=== PATIENT | female | born 1980 | race Hispanic/Latino ===

== ENCOUNTER 2022-10-04 12:17 | Emergency (ER) | payer OTHER, SELFPAY ==
--- OUTSIDE RECORDS SUMMARY | 2022-10-04 12:24 | XMS REPORT | Continuity of Care Document ---
:1980 Author Organization [facility] t Address [address] [place] [address] Care Team Providers Name Role Phone Pcp, Patient Does Not Have A Primary Care Physician [phone] Doctor Unassigned, [place] Attending Clinician Unavailable DEONDRE MCCARTY Attending Clinician Unavailable DANIELA WILLETT Attending Clinician Unavailable DANIELA WILLETT Attending Clinician Unavailable Problems Condition Condition Condition Status Onset Resolution Last Treating Co mments Source Name Details Category Date Date Treatment Clinician Date Pain Pain Disease Active Univers pelvic pelvic 8-03 ity of 00:00: [address] Dysuria Dysuria Disease Active Univers 8-03 ity of 00:00: [address] Nausea Nausea Disease Active Univers 8-03 ity of 00:00: [address] History of History of Disease Active U nivers UTI UTI 10-12 ity of 00:00: [address] Allergies, Adverse Reactions, Alerts Allergy Allergy Status Severity Reaction(s) Onset Inactive Treating Comm ents Source Name Type Date Date Clinician NO KNOWN Drug Active Univers ALLERGIE Class ity of S [facility] Social History Social Habit Start Date Stop Date Quantity Comments Source History of Passive smoker University of tobacco use [facility] [place] History SDOH University o f Alcohol Frequency [facility] edical [place] History SDOH University o f Alcohol Std [facility] Drinks Branch History SDOH University o f Alcohol Binge [place] [facility] [place] Tobacco use and 2021-10-12 2021-10-12 Smokeless tobacco Un iversity of exposure 00:00:00 00:00:00 non-user [facility] Alcohol intake 2021-10-12 2021-10-12 Current drinker of Un iversity of 00:00:00 00:00:00 alcohol (finding) [facility] Alcohol Comment 2021-10-12 2021-10-12 occasionally Univers ity of 00:00:00 00:00:00 [facility] Sex Ass[birth year] At [birth year] Universit y of 00:00:00 00:00:00 [facility] Smoking Status Start Date Stop Date Source Never smoked tobacco [facility] Medications Ordered Filled Start Stop Current Ordering Indication Dosage Frequency Signature Comments Components Source Medication Medication Date Date Medication? Clinician (SIG) Name Name ciprofloxac Yes TAKE 1 Univ ers in HCl 500 7-28 TABLET BY ity of mg tablet 00:00: MOUTH TWICE A Medical DAY FOR 10 Branch DAYS ondansetron Yes PLEASE SEE Univers 8 mg 7-28 ATTACHED ity of disintegrat 00:00: FOR [place] ing tablet 00 DETAILED Medic al DIRECTIONS Branch proMETHazin Yes PLEASE SEE Univers e 25 mg 7-28 ATTACHED ity of tablet 00:00: FOR DETAILED Medical DIRECTIONS Branch ciprofloxac Yes TAKE 1 Univ ers in HCl 500 7-28 TABLET BY ity of mg tablet 00:00: MOUTH TWICE A Medical DAY FOR 10 Branch DAYS ondansetron Yes PLEASE SEE Univers 8 mg 7-28 ATTACHED ity of disintegrat 00:00: FOR [place] ing tablet 00 DETAILED Medic al DIRECTIONS Branch proMETHazin Yes PLEASE SEE Univers e 25 mg 7-28 ATTACHED ity of tablet 00:00: FOR DETAILED Medical DIRECTIONS Branch ciprofloxac Yes TAKE 1 Univ ers in HCl 500 7-28 TABLET BY ity of mg tablet 00:00: MOUTH TWICE A Medical DAY FOR 10 Branch DAYS ondansetron Yes PLEASE SEE Univers 8 mg 7-28 ATTACHED ity of disintegrat 00:00: FOR [place] ing tablet 00 DETAILED Medic al DIRECTIONS Branch proMETHazin Yes PLEASE SEE Univers e 25 mg 7-28 ATTACHED ity of tablet 00:00: FOR DETAILED Medical DIRECTIONS Branch ciprofloxac Yes TAKE 1 Univ ers in HCl 500 7-28 TABLET BY ity of mg tablet 00:00: MOUTH 00 TWICE A Medical DAY FOR 10 Branch DAYS ondansetron Yes PLEASE SEE Univers 8 mg 7-28 ATTACHED ity of disintegrat 00:00: FOR [place] ing tablet 00 DETAILED Medic al DIRECTIONS Branch proMETHazin Yes PLEASE SEE Univers e 25 mg 7-28 ATTACHED ity of tablet 00:00: FOR 00 DETAILED Medical [facility] Branch Vital Signs Vital Name Observation Time Observation Value Comments Source Systolic blood 2021-10-12 15:49:00 112 mm[Hg] Univer sity of pressure [facility] Diastolic blood 2021-10-12 15:49:00 72 mm[Hg] Unive rsity of [facility] Heart rate 2021-10-12 15:49:00 82 /min [facility] Body temperature 2021-10-12 15:49:00 [facility] Respiratory rate 2021-10-12 15:49:00 16 /min [facility] Body height 2021-10-12 15:49:00 139.7 cm [facility] Body weight 2021-10-12 15:49:00 55.792 kg [facility] BMI 2021-10-12 15:49:00 28.59 kg/m2 [facility] Procedures Procedure Date / Time Performed Performing Clinician Patricia e EXTERNAL PROVIDER 2021-12-05 05:01:00 Doctor Unassigned, No Univ ersity [facility] RECORDS Name [facility] EXTERNAL PROVIDER 2021-10-25 05:01:00 [facility]igned, [facility] URINE CULTURE 2021-10-12 20:07:00 Daniela Willett [facility] Encounters Start End Encounter Admission Attending Care Care Encounter Source Date/Time Date/Time Type Type Clinicians Facility Department ID 2021-12-05 2021-12-05 Orders Doctor LAMAR [id number] Univers 00:00:00 00:00:00 Only Unassigned, ZOHAIB [id number] ity of [place] [facility] [id number] Silvino as [id number] [place] [address] Branch 2021-11-04 2021-11-04 Outpatient R BIBIANA [facility] [id number] Univers 09:30:00 09:30:00 DEONDRE flaca [facility] 2021-10-26 2021-10-26 Outpatient R DANIELA WILLETT [facility] B [id number] Univers 10:00:00 10:00:00 TAMIEDANIELAjyothi [facility] 2021-10-25 2021-10-25 Orders Doctor BRIANDA [id number] Univers 00:00:00 00:00:00 Only Unassigned, ZOHAIB [id number] ity of [place] [facility] [id number] Silvino [id number] [address] 2021-10-14 2021-10-14 Telephone Tamie [facility] [id number] Univers 00:00:00 00:00:00 Daniela REILLY [id number] it y [place] [id number] [facility] [id number] [address] 2021-10-12 2021-10-12 Outpatient R JUANCHODANIELA LOPES [facility] B [id number] Univers 10:00:00 11:23:25 TAMIEJOSE ALFREDODIEUDONNE thayer [facility] 2021-10-12 2021-10-12 Office Fabiromarionikkotracy [facility] [id number] Univers 10:00:00 11:23:25 Visit Daniela REILLY [id number] it y of WOMEN'S [id number] [facility] s HEALTH [id number] [address] 2021-10-12 2021-10-12 Outpatient R TAMIEJOSE ALFREDODIEUDONNE [facility] B [id number] Univers 10:00:00 11:23:25 DANIELA WILLETT [facility] 2021-10-12 2021-10-12 Outpatient R TAMIE JOSE ALFREDODIEUDONNE [facility] B [id number] Univers 10:00:00 11:23:25 DANIELA WILLETT [facility] 2021-10-12 2021-10-12 Letter JAEL Willett [id number] Univers 00:00:00 00:00:00 (Out) Daniela REILLY [id number] it y of WOMEN'S [id number] [facility] [id number] [facility] [address] Branch 2021-08-03 2021-08-03 Orders Doctor BRIANDA [id number] Univers 00:00:00 00:00:00 Only Unassigned, ZOHAIB [id number] ity of [place] [facility] [id number] [facility] [id number] [facility] 009 Branch Results This patient has no known results.
[2022-10-04 13:00] LABS: Specific Gravity 1.017 (1.005-1.030)
[2022-10-04 13:01] LABS: Specific Gravity 1.017 (1.005-1.030); Urine Bacteria <20 /HPF (<20); Urine Bilirubin NEGATIVE (Negative); Urine Blood Trace (Negative); Urine Clarity Turbid (Clear); Urine Color Light-Yellow (Yellow); Urine Glucose NEGATIVE (Negative); Urine Protein NEGATIVE (Negative); Urine Urobilinogen Normal (Normal); Urine pH 7.5 (5.0-7.0)
[2022-10-04 13:03] LABS: Urine Mucus Slight /HPF (None Seen)
[2022-10-04] MEDS ORDERED: ONDANSETRON 4 MG/2 ML VIAL ONE (13:29)
[2022-10-04] MEDS ORDERED: NA CHLORIDE 0.9% 1,000 ML ONE (13:29)
[2022-10-04] MEDS ORDERED: FAMOTIDINE 20 MG/2 ML VIAL IV ONE (13:29)
[2022-10-04] MEDS ORDERED: KETOROLAC 30 MG/ML INJ ONE (13:29)
[2022-10-04 13:45] LABS: Absolute Lymphocytes (CBC) 1.6 K/uL (0.7-4.9); Hematocrit 37.4 % (36.0-45.0); Lymphocytes % 28.2 % (15.3-44.8); MCV 94.9 fL (80-100); MPV 8.2 fL (7.6-11.3); RBC Red Blood Cell Count 3.94 M/uL (3.86-4.86)
--- NOTE | 2022-10-04 13:45 | RAD REPORT ---
EXAM DESCRIPTION: CTAbdomen Pelvis W Contrast - 10/04/2022 1:38 pm CLINICAL HISTORY: Abdominal pain. ABD PAIN COMPARISON: No comparisons TECHNIQUE: Biphasic CT imaging of the abdomen and pelvis was performed with 100 ml non-ionic IV cont rast. All CT scans are performed using dose optimization technique as appropriate and may include automated exposure control or mA/KV adjustment according to patient size. FINDINGS: The lung bases are clear. The liver, spleen, pancreas, adrenal glands and right kidney are within normal limits. Defects in the left kidney likely related to previous infection. No bowel obstruction, free air, intra-abdominal free fluid or abscess. The appendix is normal. Small fat containing umbilical hernia. No evidence of significant lymphadenopathy. Trace pelvic free fluid . No suspicious bony findings. IMPRESSION: No acute intra-abdominal or pelvic finding.
[2022-10-04 14:02] LABS: Albumin 3.6 g/dL (3.4-5.0); Bilirubin Total 0.8 mg/dL (0.2-1.0); Potassium 3.8 mEq/L (3.5-5.1); Protein, Total 7.1 g/dL (6.4-8.2)
[2022-10-04] MEDS ORDERED: PROMETHAZINE INJ 25 MG/ML AMP ONE ×2 (14:43→14:48)
[2022-10-04] MEDS ORDERED: FENTANYL CITR 100 MCG/2 ML ONE ×2 (14:44→14:48)
[2022-10-04] MEDS ORDERED: NA CHLORIDE 0.9% 250 ML ONE (14:44)
--- NOTE | 2022-10-04 15:31 | RAD REPORT ---
EXAM DESCRIPTION: US - Transvaginal Study Probe - 10/04/2022 3:21 pm CLINICAL HISTORY: left adnexal tenderness;Abd pain Pelvic pain. COMPARISON: Transvaginal Study Probe dated 10/06/2021 FINDINGS: The uterus is normal in size, shape and echotexture. The uterus measures 9.9 x 6.5 x 5.3 c m. The endometrial stripe measures 13 mm, normal. Both ovaries are normal in size, shape and echotexture. The right ovary measures 3.6 x 3.1 x 2.3 cm. The left ovary measures 2.9 x 1.7 x 1.6 cm.. No ovarian or parovarian lesions. No adnexal masses. Normal Doppler blood flow was demonstrated to both ovaries. Mild free fluid. IMPRESSION: No acute finding demonstrated.
--- NOTE | 2022-10-04 15:37 | EDPHYS ---
Physician Documentation [facility] Name: Chary Milligan Age: 42 yrs Sex: Female : 1980 Arrival Date: 10/04/2022 Time: 12:17 Bed 10 Private MD: ED Physician Falguni Yoo HPI: 10/04 15:58 This 42 yrs old Female presents to ER via Ambulatory with complaints of Pelvic snw Pain, Nausea. 15:58 Onset: The symptoms/episode began/occurred acutely. Associated signs and symptoms: snw Pertinent positives: nausea, Pertinent negatives: chest pain, congestion, constipation, diarrhea, dysuria, fever. It is unknown whether or not the patient has had similar symptoms in the past. 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 - Social history:: Smoking status: Patient denies any tobacco usage or history of. ROS: 15:57 Constitutional: Negative for fever, chills, and weight loss, Eyes: Negative for injury, snw pain, redness, and discharge, ENT: Negative for injury, pain, and discharge, Neck: Negative for injury, pain, and swelling, Cardiovascular: Negative for chest pain, palpitations, and edema, Respiratory: Negative for shortness of breath, cough, wheezing, and pleuritic chest pain, Back: Negative for injury and pain, : Negative for injury, bleeding, discharge, and swelling, MS/Extremity: Negative for injury and deformity, Skin: Negative for injury, rash, and discoloration, Neuro: Negative for headache, weakness, numbness, tingling, and seizure, Psych: Negative for depression, anxiety, suicide ideation, homicidal ideation, and hallucinations. 15:57 Abdomen/GI: Positive for abdominal pain, nausea, abdominal cramps, abdominal distension, of the suprapubic area and left lower quadrant. Exam: 15:55 Constitutional: This is a well developed, well nourished patient who is awake, alert, snw and in no acute distress. Head/Face: Normocephalic, atraumatic. Eyes: Pupils equal round and reactive to light, extra-ocular motions intact. Lids and lashes normal. Conjunctiva and sclera are non-icteric and not injected. Cornea within normal limits. Periorbital areas with no swelling, redness, or edema. ENT: Nares patent. No nasal discharge, no septal abnormalities noted. Tympanic membranes are normal and external auditory canals are clear. Oropharynx with no redness, swelling, or masses, exudates, or evidence of obstruction, uvula midline. Mucous membranes moist. Neck: Trachea midline, no thyromegaly or masses palpated, and no cervical lymphadenopathy. Supple, full range of motion without nuchal rigidity, or vertebral point tenderness. No Meningismus. Chest/axilla: Normal chest wall appearance and motion. Nontender with no deformity. No lesions are appreciated. Cardiovascular: Regular rate and rhythm with a normal S1 and S2. No gallops, murmurs, or rubs. Normal PMI, no JVD. No pulse deficits. Respiratory: Lungs have equal breath sounds bilaterally, clear to auscultation and percussion. No rales, rhonchi or wheezes noted. No increased work of breathing, no retractions or nasal flaring. Back: No spinal tenderness. No costovertebral tenderness. Full range of motion. Skin: Warm, dry with normal turgor. Normal color with no rashes, no lesions, and no evidence of cellulitis. MS/ Extremity: Pulses equal, no cyanosis. Neurovascular intact. Full, normal range of motion. Neuro: Awake and alert, GCS 15, oriented to person, place, time, and situation. Cranial nerves II-XII grossly intact. Motor strength 5/5 in all extremities. Sensory grossly intact. Cerebellar exam normal. Normal gait. Psych: Awake, alert, with orientation to person, place and time. Behavior, mood, and affect are within normal limits. 15:55 Abdomen/GI: Bowel sounds: normal, Palpation: moderate abdominal tenderness, in the suprapubic area and left lower quadrant. Vital Signs: 12:25 BP 124 / 77; Pulse 76; Resp 16 S; Temp 98(TE); Pulse Ox 100% on R/A; Weight 56.25 kg aa5 (R); Height 4 ft. 6 in. (R); 16:23 BP 108 / 69; Pulse 57; Resp 16; Pulse Ox 100% on R/A; Pain 8/10; cm10 12:25 Body Mass Index 28.82 (56.25 kg, 139.7 cm) aa5 16:23 Pain Scale: Adult cm10 MDM: 12:34 Patient medically screened. snw 14:25 Differential diagnosis: viral Infection, bacterial infection, gastroenteritis, torsion, snw pyelo. Data reviewed: vital signs, nurses notes, lab test result(s), radiologic studies. Counseling: I had a detailed discussion with the patient and/or guardian regarding: the historical points, exam findings, and any diagnostic results supporting the discharge/admit diagnosis, lab results, radiology results, the need for outpatient follow up, for definitive care, to return to the emergency department if symptoms worsen or persist or if there are any questions or concerns that arise at home. ED course: Continued pain, no CT evidence of source, will order US and other pain medications. 15:35 Response to treatment: There is no appreciated change of the patient's symptoms at this [facility] time. Special discussion: Based on the patient's Hx, exam, and Dx evaluation, there is no indication for emergent surgery or inpatient Tx. It is understood by the patient/guardian that if the Sx's persist or worsen they need to return immediately for re-evaluation. 15:55 I considered the following discharge prescriptions or medication management in the [facility] emergency department Medications were administered in the Emergency Department. See MAR. Historians other than the Patient: Friend: Family/funeral driver. Response to treatment: There is no appreciated change of the patient's symptoms at this time, pt still with significant LLQ pain of unknown origin. Will give simethicone and dicyclomine and have her f/u. 10/04 12:33 Order name: Urine W/Microscopic (UAM); Complete Time: 13:19 snw 10/04 12:33 Order name: PREGU; Complete Time: 13:00 10/04 13:16 Order name: CBC with Diff; Complete Time: 14:14 w 10/04 13:16 Order name: CMP; Complete Time: 14:02 snw 10/04 13:16 Order name: Lipase; Complete Time: 14:02 10/04 13:16 Order name: CT Abd/Pelvis - IV Contrast Only; Complete Time: 13:59 snw 10/04 14:30 Order name: Transvaginal Study Probe; Complete Time: 15:34 EDMS 10/04 13:16 Order name: IV Saline Lock; Complete Time: 13:34 snw 10/04 13:16 Order name: Labs collected and sent; Complete Time: 13:34 snw Administered Medications: 13:33 Drug: NS 0.9% IV 1000 ml Route: IV; Rate: 1 bolus; Site: right antecubital; cm10 16:25 Follow up: Response: No adverse reaction; IV Status: Completed infusion; IV Intake: cm10 1000ml 13:33 Drug: Famotidine IVP 20 mg Route: IVP; Site: right antecubital; cm10 16:25 Follow up: Response: No adverse reaction cm10 13:34 Drug: TORadol - Ketorolac IVP 15 mg Route: IVP; Site: right antecubital; cm10 16:25 Follow up: Response: No adverse reaction cm10 13:34 Drug: Ondansetron IVP 4 mg Route: IVP; Site: right antecubital; cm10 16:25 Follow up: Response: No adverse reaction cm10 15:18 Drug: Promethazine IVP 12.5 mg Route: IVP; Site: right antecubital; ll1 16:25 Follow up: Response: No adverse reaction cm10 15:18 Drug: NS 0.9% IV 250 ml Route: IV; Rate: bolus; Site: right antecubital; ll1 16:25 Follow up: IV Status: Completed infusion; IV Intake: 250ml cm10 16:26 Follow up: Response: No adverse reaction cm10 15:36 Drug: fentaNYL (PF) IVP 25 mcg Route: IVP; Site: right antecubital; cm10 16:25 Follow up: Response: No adverse reaction cm10 16:00 Drug: Dicyclomine PO 20 mg Route: PO; ll1 16:24 Follow up: Response: No adverse reaction cm10 16:23 Drug: Simethicone PO 240 mg Route: PO; cm10 16:24 Follow up: Response: No adverse reaction cm10 Disposition Summary: 10/04/22 15:36 Discharge Ordered Location: Home snw Condition: Stable snw Diagnosis - Lower abdominal pain, unspecified snw Followup: snw - With: Emergency Department - When: As needed - Reason: Worsening of condition Followup: snw - With: Private Physician - When: 1 - 2 days - Reason: Recheck today's complaints, Continuance of care, Re-evaluation by your physician Discharge Instructions: - Discharge Summary Sheet snw - Abdominal Pain, Adult snw - Colic snw - Flank Pain, Adult snw - Pain Without a Known Cause snw Forms: - Medication Reconciliation Form snw - Thank You Letter snw - Antibiotic Education snw - Prescription Opioid Use snw - Patient Portal Instructions snw - Work release form cm10 Prescriptions: - promethazine 25 mg Oral Tablet - take 1 tablet by ORAL route every 6 hours As needed; 20 tablet; Refills: 0, snw Product Selection Permitted - dicyclomine 20 mg Oral Tablet - take 1 tablet by ORAL route 3 times per day; 21 tablet; Refills: 0, Product snw Selection Permitted Signatures: Dispatcher [employer] EDDarlin Coleman, EXPLOSIVE OPERATOR BOMB-C EXPLOSIVE OPERATOR BOMB-Csnw Clari Cordon, RN RN aa5 Dutch Foster RN RN ll1 Rimma Blanco, RN RN cm10 Corrections: (The following items were deleted from the chart) 14:30 14:22 Pelvis Complete+US.RAD.BRZ ordered. EDSD EDMS
--- NOTE | 2022-10-04 15:37 | ER ---
Nurse's Notes [facility] Name: Chary Milligan Age: 42 yrs Sex: Female : 1980 Arrival Date: 10/04/2022 Time: 12:17 Bed 10 Private MD: Diagnosis: Lower abdominal pain, unspecified Presentation: 10/04 12:25 Chief complaint: Patient states: left pelvic pain that began yesterday, reports nausea aa5 and vomiting. Coronavirus screen: At this time, the client does not indicate any symptoms associated with coronavirus-19. Ebola Screen: Patient denies travel to an Ebola-affected area in the 21 days before illness onset. Initial Sepsis Screen: Does the patient meet any 2 criteria? No. Patient's initial sepsis screen is negative. Does the patient have a suspected source of infection? No. Patient's initial sepsis screen is negative. Risk Assessment: Do you want to hurt yourself or someone else? Patient reports no desire to harm self or others. Onset of symptoms was September 2022. 12:25 Acuity: MITCH 3 aa5 12:25 Method Of Arrival: Ambulatory aa5 Triage Assessment: 16:24 General: Appears in no apparent distress. comfortable, Behavior is calm, cooperative. cm10 GI: Reports lower abdominal pain. 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 - Social history:: Smoking status: Patient denies any tobacco usage or history of. Screenin:16 [facility] ED Fall Risk Assessment (Adult) History of falling in the last 3 months, cm10 including since admission No falls in past 3 months (0 pts) Confusion or Disorientation No (0 pts) Intoxicated or Sedated No (0 pts) Impaired Gait No (0 pts) Mobility Assist Device Used No (0 pt) Altered Elimination No (0 pt) Score/Fall Risk Level 0 - 2 = Low Risk Oriented to surroundings, Maintained a safe environment, Hourly rounding (assess needs \T\ fall precautionary measures) done. Abuse screen: Denies threats or abuse. Denies injuries from another. Nutritional screening: No deficits noted. Tuberculosis screening: No symptoms or risk factors identified. Assessment: 13:35 General: Appears in no apparent distress. comfortable, Behavior is calm, cooperative. cm10 Pain: Complains of pain in suprapubic area and left lower quadrant Pain does not radiate. Pain Quality of pain is described as sharp, shooting, Pain began 1 day ago. 13:35 Neuro: No deficits noted. Level of Consciousness is awake, alert, Oriented to person, cm10 place, time, situation. Respiratory: No deficits noted. Airway is patent Respiratory effort is even, unlabored, Respiratory pattern is regular, symmetrical. GI: Abdomen is flat. Derm: No deficits noted. Skin is intact, is healthy with good turgor, Skin is pink, warm \T\ dry. Vital Signs: 12:25 BP 124 / 77; Pulse 76; Resp 16 S; Temp 98(TE); Pulse Ox 100% on R/A; Weight 56.25 kg aa5 (R); Height 4 ft. 6 in. (R); 16:23 BP 108 / 69; Pulse 57; Resp 16; Pulse Ox 100% on R/A; Pain 8/10; cm10 12:25 Body Mass Index 28.82 (56.25 kg, 139.7 cm) aa5 16:23 Pain Scale: Adult cm10 ED Course: 12:18 Patient arrived in ED. am2 12:22 [facility] snw 12:22 Falguni Yoo MD is Attending Physician. snw 12:25 Arm band placed on. aa5 12:26 Triage completed. aa5 12:51 PREGU Sent. ll1 12:51 Urine W/Microscopic (UAM) Sent. ll1 13:00 Rimma Blanco, RN is Primary Nurse. cm10 13:16 Patient has correct armband on for positive identification. Bed in low position. Call cm10 light in reach. Provided Education on: N/A. 13:17 No provider procedures requiring assistance completed. cm10 13:[address] cm10 13:34 CBC with Diff Sent. cm10 13:34 CMP Sent. cm10 13:34 Lipase Sent. cm10 13:34 Initial lab(s) drawn, by me, sent to lab. Inserted saline lock: 20 gauge in right cm10 antecubital area, using aseptic technique. Blood collected. 13:39 CT Abd/Pelvis - IV Contrast Only In Process Unspecified. EDMS 13:[address]. cm10 15:23 Transvaginal Study Probe In Process Unspecified. EDMS 16:24 IV discontinued, intact, bleeding controlled, No redness/swelling at site. Pressure cm10 dressing applied. Administered Medications: 13:33 Drug: NS 0.9% IV 1000 ml Route: IV; Rate: 1 bolus; Site: right antecubital; cm10 16:25 Follow up: Response: No adverse reaction; IV Status: Completed infusion; IV Intake: cm10 1000ml 13:33 Drug: Famotidine IVP 20 mg Route: IVP; Site: right antecubital; cm10 16:25 Follow up: Response: No adverse reaction cm10 13:34 Drug: TORadol - Ketorolac IVP 15 mg Route: IVP; Site: right antecubital; cm10 16:25 Follow up: Response: No adverse reaction cm10 13:34 Drug: Ondansetron IVP 4 mg Route: IVP; Site: right antecubital; cm10 16:25 Follow up: Response: No adverse reaction cm10 15:18 Drug: Promethazine IVP 12.5 mg Route: IVP; Site: right antecubital; ll1 16:25 Follow up: Response: No adverse reaction cm10 15:18 Drug: NS 0.9% IV 250 ml Route: IV; Rate: bolus; Site: right antecubital; ll1 16:25 Follow up: IV Status: Completed infusion; IV Intake: 250ml cm10 16:26 Follow up: Response: No adverse reaction cm10 15:36 Drug: fentaNYL (PF) IVP 25 mcg Route: IVP; Site: right antecubital; cm10 16:25 Follow up: Response: No adverse reaction cm10 16:00 Drug: Dicyclomine PO 20 mg Route: PO; ll1 16:24 Follow up: Response: No adverse reaction cm10 16:23 Drug: Simethicone PO 240 mg Route: PO; cm10 16:24 Follow up: Response: No adverse reaction cm10 Medication: 13:16 VIS not applicable for this client. cm10 Intake: 16:25 IV: 1000ml; Total: 1000ml. cm10 16:25 IV: 250ml; Total: 1250ml. cm10 Outcome: 15:36 Discharge ordered by . jovon 16:24 Discharged to home ambulatory, with friend. cm10 16:24 Condition: good 16:24 Discharge instructions given to patient, Instructed on discharge instructions, follow up and referral plans. medication usage, Demonstrated understanding of instructions, follow-up care, medications, Prescriptions given X 2. 16:26 Patient left the ED. cm10 Signatures: Dispatcher [employer] EDMS Darlin Garrison, MILK TESTER-C MILK TESTER-Csnw Clari Cordon, RN RN aa5 Missy Hernandez Lynsay, RN RN ll1 Rimma Blanco RN RN cm10
[2022-10-04] MEDS ORDERED: DICYCLOMINE HCL 10 MG CAP ONE (16:03)
[2022-10-04] MEDS ORDERED: SIMETHICONE 80 MG TAB ONE (16:28)
[2022-10-04 17:02] VITALS: TEMP 98; O2SAT 100
[2022-10-04 17:04] VITALS: BP 108/69
== END 2022-10-04 16:26 | disposition home or self-care (01) ==
LOC: ER 12:17
DX: R10.32 Left lower quadrant pain (principal)
CPT/HCPCS: 36415; 74177; 76830; 80053; 81001; 81025; 83690; 85025; 96361; 96365; 96375; 99285; J2405; J2550; J3010; J7030; J7050; Q9967